=== PATIENT | female | born 1940 | race Caucasian/White ===

== ENCOUNTER 2017-06-21 12:07 | Emergency (ER) | payer MEDICARE, BC ==
[2017-06-21] MEDS ORDERED: Ondansetron 4 MG/2 ML SDV IVPUSH ONE (12:50)
[2017-06-21] MEDS ORDERED: HYDROmorphone 0.5 MG/0.5 ML Syringe IVPUSH ONE ×2 (12:50→14:56)
--- NOTE | 2017-06-21 12:54 | EDM.PDOC ---
ED HPI GENERAL MEDICAL PROBLEM - General Chief Complaint: Abdominal Pain Stated Complaint: NAUSEA/ABD PAIN/TEMP Time Seen by Provider: 06/21/17 12:51 Source of Information: Reports: Patient History Limitations: Reports: No Limitations - History of Present Illness INITIAL COMMENTS - FREE TEXT/NARRATIVE: pt arrived with very severe abdomanal pain. She is vomiting markedly. She started getting sick yesterday. Onset: Other ( started yesterday. ) Duration: Hour(s): Associated Symptoms: Reports: Fever/Chills, Nausea/Vomiting Lower Abdomen Pain Score (Numeric/FACES): 11 - Related Data Allergies Allergy/AdvReac Type Severity Reaction Status Date / Time latex Allergy Hives Verified 06/21/17 12:23 Sulfa (Sulfonamide Allergy Hives Verified 06/21/17 12:22 Antibiotics) Home Meds: Home Meds Aspirin [Halfprin] 81 mg PO Q48H 06/21/17 [History] Diclofenac Sodium 1 dose TOP BID 06/21/17 [History] Esomeprazole Magnesium [Nexium] 20 mg PO DAILY 06/21/17 [History] Past Medical History HEENT History: Reports: Allergic Rhinitis, Impaired Vision Respiratory History: Reports: Asthma 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: , 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 Musculoskeletal History: Reports: Osteoarthritis Oncologic (Cancer) History: Reports: Other (See Below) Other Oncologic History: skin Dermatologic History: Reports: Other (See Below) Other Dermatologic History: rash - Infectious Disease History Infectious Disease History: Reports: Chicken Pox, Measles, Mumps - Past Surgical History HEENT Surgical History: Reports: Tonsillectomy GI Surgical History: Reports: Appendectomy, Colonoscopy, Other (See Below) Other GI Surgeries/Procedures: Known diverticuli Female Surgical History: Reports: Hysterectomy Dermatological Surgical History: Reports: Skin Biopsy, Other (See Below) Social & Family History - Tobacco Use Smoking Status *Q: Former Smoker Used Tobacco, but Quit: Yes Month/Year Tobacco Last Used: 1985 Second Hand Smoke Exposure: No - Caffeine Use Caffeine Use: Reports: Coffee, Soda - Alcohol Use Days Per Week of Alcohol Use: 0 - Recreational Drug Use Recreational Drug Use: No ED ROS GENERAL - Review of Systems Review Of Systems: See Below Constitutional: Reports: No Symptoms HEENT: Reports: No Symptoms Respiratory: Reports: No Symptoms Cardiovascular: Reports: No Symptoms Endocrine: Reports: No Symptoms GI/Abdominal: Reports: Abdominal Pain, Diarrhea, Nausea, Vomiting : Reports: No Symptoms Musculoskeletal: Reports: No Symptoms ED EXAM, GI/ABD - Physical Exam Exam: See Below Text/Narrative:: PT ARRIVED WITH GENERALIZED ABDOMANAL PAIN HOWEVER THE PT THIHNKS IT IS WORSE ON THE LEFT. Exam Limited By: No Limitations General Appearance: Severe Distress, Active Emesis, Other (PT HAS VOMITED ALL DAY. ) Ears: Normal TMs Nose: Normal Inspection Throat/Mouth: Normal Inspection Head: Atraumatic Neck: Normal Inspection Respiratory/Chest: No Respiratory Distress Cardiovascular: Regular Rate, Rhythm, Tachycardia GI/Abdominal Exam: Distended, Guarding, Tender, Other (pT HAS GENERALIZED ABDOMNL TENDERNESS MORE ON THE LEFT THAN THE RT. ) (Female) Exam: Deferred Rectal (Female) Exam: Deferred Back Exam: Normal Inspection Extremities: Normal Inspection Neurological: Alert, Oriented, Normal Cognition Psychiatric: Normal Affect Course - Vital Signs Last Recorded V/S: Last Vital Signs Temp 39.0 C H 06/21/17 14:17 Pulse 93 06/21/17 14:17 Resp 14 06/21/17 14:17 BP 165/69 H 06/21/17 14:17 Pulse Ox 100 06/21/17 14:17 - Orders/Labs/Meds Labs: Laboratory Tests 06/21/17 06/21/17 06/21/17 Range/Units 13:11 13:11 13:11 WBC 6.8 (4.5-11.0) K/uL RBC 4.23 (3.30-5.50) M/uL Hgb 13.1 (12.0-15.0) g/dL Hct 39.8 (36.0-48.0) % MCV 94 (80-98) fL MCH 31 (27-31) pg MCHC 33 (32-36) % Plt Count 268 (150-400) K/uL Neut % (Auto) 85 H (36-66) % Lymph % (Auto) 11 L (24-44) % [place] % (Auto) 5 (2-6) % Eos % (Auto) 0 L (2-4) % Baso % (Auto) 0 (0-1) % Sodium 135 L (140-148) mmol/L Potassium 3.8 (3.6-5.2) mmol/L Chloride 100 (100-108) mmol/L Carbon Dioxide 25 (21-32) mmol/L Anion Gap 13.8 (5.0-14.0) mmol/L BUN 13 (7-18) mg/dL Creatinine 0.6 (0.6-1.0) mg/dL Est Cr Clr Drug Dosing 73.09 mL/min Estimated GFR (MDRD) > 60 (>60) Glucose 139 H (74-106) mg/dL Calcium 9.1 (8.5-10.1) mg/dL Total Bilirubin 1.1 H (0.2-1.0) mg/dL AST 31 (15-37) U/L ALT 45 (12-78) U/L Alkaline Phosphatase 92 (46-116) U/L C-Reactive Protein 15.07 H (0.0-0.3) mg/dL Total Protein 7.8 (6.4-8.2) g/dL Albumin 3.6 (3.4-5.0) g/dL Globulin 4.2 H (2.3-3.5) g/dL Albumin/Globulin Ratio 0.9 L (1.2-2.2) Meds: Medications Discontinued Medications Generic Name Dose Route Start Last Admin Trade Name Freq PRN Reason Stop Dose Admin Acetaminophen 650 mg 06/21/17 15:38 06/21/17 16:05 Tylenol RECTAL 06/21/17 15:39 650 mg NOW ONE Administration Hydromorphone HCl 0.5 mg 06/21/17 12:50 06/21/17 13:05 Dilaudid IVPUSH 06/21/17 12:51 0.5 mg ONETIME ONE Administration Hydromorphone HCl 0.5 mg 06/21/17 14:56 06/21/17 15:03 Dilaudid IVPUSH 06/21/17 14:57 0.5 mg ONETIME ONE Administration Sodium Chloride 1,000 mls @ 999 mls/hr 06/21/17 13:00 06/21/17 13:04 Normal Saline IV 999 mls/hr ASDIRECTED KIN Administration Sodium Chloride 100 mls @ 3 mls/sec 06/21/17 13:45 06/21/17 13:55 Normal Saline IV 3 mls/sec ASDIRECTED KIN Administration Sodium Chloride 1,000 mls @ 999 mls/hr 06/21/17 13:45 06/21/17 15:05 Normal Saline IV 999 mls/hr ASDIRECTED KIN Administration Ceftriaxone Sodium 1 gm/ 50 mls @ 100 mls/hr 06/21/17 15:06 06/21/17 16:10 Sodium Chloride IV 06/21/17 15:35 100 mls/hr ONETIME ONE Administration Metronidazole 500 mg/ Premix 100 mls @ 100 mls/hr 06/21/17 15:07 06/21/17 16: 20 IV 06/21/17 16:06 100 mls/hr ONETIME ONE Administration Iopamidol 100 ml 06/21/17 13:45 06/21/17 13:55 Isovue-300 (61%) IV 88 ml . DIRECTED KIN Administration Ondansetron HCl 4 mg 06/21/17 12:50 06/21/17 13:03 Zofran IVPUSH 06/21/17 12:51 4 mg ONETIME ONE Administration - Re-Assessments/Exams Free Text/Narrative Re-Assessment/Exam: 06/21/17 15:02 PT HAD A NORMAL WBC, CRP WAS GREATER THAN 15. 06/21/17 15:08 CAT SCAN SHOWS A PNEUMoPERTIUM WITH DIVERTICULITIS, pT HAS CHOSEN TO TRANSFER TO [facility]. 06/25/17 07:46 Departure - Departure Time of Disposition: 15:09 Disposition: DC/Tfer to Acute Hospital 02 Condition: Fair Clinical Impression: Diverticulitis, Free intraperitoneal air, Dehydration - Discharge Information Referrals: Fred Serrano MD [Primary Care Provider] - Forms: ED Department Discharge Care Plan Goals: TRANSFER TO [facility]
[2017-06-21] MEDS ORDERED: Sodium Chloride 0.9% 1,000 ML IV SCH ×2 (13:00→13:45)
[2017-06-21] MEDS ORDERED: Sodium Chloride 0.9% 100 ML IV SCH (13:45)
[2017-06-21] MEDS ORDERED: Iopamidol 612 MG/ML 100 ML Bottle IV SCH (13:45)
[2017-06-21] MEDS ORDERED: cefTRIAXone 1 GM in Sodium Chloride 0.9% 50 ML IV ONE (15:06)
[2017-06-21] MEDS ORDERED: metroNIDAZOLE/Normal Saline 500 MG in Premix Bag 1 BAG IV ONE (15:07)
[2017-06-21] MEDS ORDERED: Acetaminophen 650 MG Supp RECTAL ONE (15:38)
== END 2017-06-21 16:41 ==
LOC: JP.ED 12:07
DX: K57.92 Diverticulitis of intestine, part unspecified, without perforation or abscess without bleeding (principal); E86.0 Dehydration; K66.8 Other specified disorders of peritoneum; Z79.899 Other long term (current) drug therapy; Z87.891 Personal history of nicotine dependence
CPT/HCPCS: 36415; 74177; 80053; 85025; 86140; 96374; 99285; A9270; J0696; J1170; J2405; J7030; J7040; J7050; Q9967

== ENCOUNTER 2019-07-05 10:01 | Emergency (ER) | payer MEDICARE, BC ==
--- NOTE | 2019-07-05 10:36 | EDM.PDOC ---
ED HPI GENERAL MEDICAL PROBLEM - General Chief Complaint: Chest Pain Stated Complaint: CHEST PRESSURE Time Seen by Provider: 07/05/19 10:05 Source of Information: Reports: Patient History Limitations: Reports: No Limitations - History of Present Illness INITIAL COMMENTS - FREE TEXT/NARRATIVE: 78-year-old female with no significant coronary artery disease history developed substernal chest pain radiating into the neck and left arm fairly suddenly 45 minutes before coming into the emergency room. She also became lightheaded, mildly short of breath and diaphoretic. She is usually very active , exercises regularly and has no problems with chest pain. No recent illness. A recent thorough yearly evaluation at [facility] was negative, a provider heard a "murmur" on exam so it was followed with an echocardiogram which was normal. She has normal cholesterol levels, is not a smoker and is nondiabetic. She does have a fairly strong family history of coronary artery disease. When she had the pain it felt like she could only take shallow breaths, a deeper breath caused more discomfort. It is now literally gone. Onset: Sudden Duration: Minutes: (45 minutes ago) Location: Reports: Neck, Chest, Upper Extremity, Left Associated Symptoms: Reports: Chest Pain, Diaphoresis, Shortness of Breath, Weakness. Denies: Cough, Nausea/Vomiting Chest Pain Score (Numeric/FACES): 3 - Related Data Allergies Allergy/AdvReac Type Severity Reaction Status Date / Time latex Allergy Hives Verified 07/05/19 10:17 Sulfa (Sulfonamide Allergy Hives Verified 07/05/19 10:17 Antibiotics) Home Meds: Home Meds Esomeprazole Magnesium [Nexium] 20 mg PO DAILY 06/21/17 [History] Ascorbate Calcium [Vitamin C] 500 mg PO DAILY 07/05/19 [History] Estradiol [Vagifem] 1 tab PO DAILY 07/05/19 [History] Glucosamine/D3/Boswellia Jessica [Osteo Bi-Flex Caplet] 1 tab PO DAILY 07/05/19 [ History] L.acidoph,Paracasei, B.lactis [Probiotic] 1 tab PO DAILY 07/05/19 [History] Multivitamin [Multivitamins] 1 tab PO DAILY 07/05/19 [History] Past Medical History HEENT History: Reports: Allergic Rhinitis, Impaired Vision 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 History: Reports: 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 also had an ostomy with a reversal. Female Surgical History: Reports: Hysterectomy Dermatological Surgical History: Reports: Skin Biopsy Social & Family History - Tobacco Use Smoking Status *Q: Never Smoker - Caffeine Use Caffeine Use: Reports: Coffee Other Caffeine Use: 3-4 per day - Recreational Drug Use Recreational Drug Use: No ED ROS GENERAL - Review of Systems Review Of Systems: See Below Constitutional: Denies: Fever, Chills HEENT: Reports: No Symptoms Respiratory: Reports: Shortness of Breath. Denies: Wheezing, Cough Cardiovascular: Reports: Chest Pain. Denies: Palpitations GI/Abdominal: Reports: No Symptoms. Denies: Abdominal Pain, Nausea, Vomiting : Reports: No Symptoms Skin: Reports: Pallor, Diaphoresis (Experienced pallor and diaphoresis before coming in but that is improved) Neurological: Reports: No Symptoms Psychiatric: Reports: No Symptoms ED EXAM, GENERAL - Physical Exam Exam: See Below Exam Limited By: No Limitations General Appearance: Alert, No Apparent Distress, Anxious Head: Atraumatic Respiratory/Chest: No Respiratory Distress, Lungs Clear Cardiovascular: Regular Rate, Rhythm, No Murmur. No: Extra Beats GI/Abdominal: Soft, Non-Tender Extremities: Normal Inspection. No: Pedal Edema Neurological: Alert, Oriented Psychiatric: Normal Affect, Normal Mood Skin Exam: Warm, Dry EKG INTERPRETATION Rhythm: NSR EKG Interpretation Comments: No previous EKGs available for comparison, mild left ventricular hypertrophy but no ST elevation or depression. Course - Vital Signs Last Recorded V/S: Last Vital Signs Temp 94.1 F L 07/05/19 10:15 Pulse 70 07/05/19 11:07 Resp 12 07/05/19 11:07 BP 198/69 H 07/05/19 11:07 Pulse Ox 99 07/05/19 11:07 - Orders/Labs/Meds Orders: Active Orders 24 hr Category Date Time Status EKG Documentation Completion [RC] ASDIRECTED Care 07/05/19 10:29 Active EKG 12 Lead [EK] Routine Ther 07/05/19 10:29 Ordered Labs: Laboratory Tests 07/05/19 07/05/19 07/05/19 Range/Units 10:43 10:43 14:49 WBC 6.4 (4.5-11.0) K/uL RBC 3.93 (3.30-5.50) M/uL Hgb 11.8 L (12.0-15.0) g/dL Hct 37.0 (36.0-48.0) % MCV 94 (80-98) fL MCH 30 (27-31) pg MCHC 32 (32-36) % Plt Count 264 (150-400) K/uL Neut % (Auto) 62 (36-66) % Lymph % (Auto) 30 (24-44) % [place] % (Auto) 7 H (2-6) % Eos % (Auto) 1 L (2-4) % Baso % (Auto) 0 (0-1) % Sodium 137 L (140-148) mmol/L Potassium 3.9 (3.6-5.2) mmol/L Chloride 102 (100-108) mmol/L Carbon Dioxide 25 (21-32) mmol/L Anion Gap 13.9 (5.0-14.0) mmol/L BUN 19 H (7-18) mg/dL Creatinine 0.8 (0.6-1.0) mg/dL Est Cr Clr Drug Dosing 54.30 mL/min Estimated GFR (MDRD) > 60 (>60) Glucose 102 (74-106) mg/dL Calcium 8.9 (8.5-10.1) mg/dL Troponin I < 0.017 < 0.017 (0.000-0.056) ng/mL - Re-Assessments/Exams Free Text/Narrative Re-Assessment/Exam: 07/05/19 11:10 The patient's labs were all normal, troponin was 0. 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 I did agree to allow her to come back after the showing, which will be in about 4 hours and a repeat troponin can be drawn as an outpatient. If that is negative which I expect it will be, we will discuss an outpatient Cardiolite stress test. If the test is positive she will be registered and transfer to cardiology will be arranged. 07/05/19 16:27 Patient return for a 4-hour troponin, was feeling okay and the troponin was negative. Still 0. We discussed setting up a Cardiolite stress test but she deferred and would rather wait until the pandemic is over unless she starts getting more symptoms. In that case she will return. Departure - Departure Time of Disposition: 11:23 Disposition: Home, Self-Care 01 Clinical Impression: Atypical chest pain Instructions: Nonspecific Chest Pain, Adult, [id number] Referrals: PCP,None [Primary Care Provider] - Forms: ED Department Discharge Care Plan Goals: Return at roughly 2 PM for repeat blood test as discussed. Return sooner if worsening or concerns. Sepsis Event Note - Evaluation Sepsis Screening Result: No Definite Risk - Focused Exam Vital Signs: Vital Signs Temp Pulse Resp BP Pulse Ox 07/05/19 11:07 70 12 198/69 H 99 07/05/19 10:15 94.1 F L 78 17 177/70 H 100 Date Exam was Performed: 07/05/19 Time Exam was Performed: 16:27 - My Orders Last 24 Hours: My Active Orders 07/05/19 10:29 EKG Documentation Completion [RC] ASDIRECTED EKG 12 Lead [EK] Routine - Assessment/Plan Last 24 Hours: My Active Orders 07/05/19 10:29 EKG Documentation Completion [RC] ASDIRECTED EKG 12 Lead [EK] Routine
== END 2019-07-05 11:23 | disposition home or self-care (01) ==
LOC: JP.ED 10:01
DX: R07.89 Other chest pain (principal); J45.909 Unspecified asthma, uncomplicated; Z91.040 Latex allergy status; Z88.2 Allergy status to sulfonamides
CPT/HCPCS: 36415; 80048; 84484; 85025; 93005; 93010; 99283; 99285-25

== ENCOUNTER 2022-03-02 06:21 | Emergency (ER) | payer MEDICARE, BC ==
[~2022-03-02 06:21] MED LIST: Sodium Chloride 0.9% 10 ML Syringe FLUSH PRN
[2022-03-02] MEDS ORDERED: Labetalol 20 MG/4 ML Syringe IVPUSH ONE ×2 (06:24→06:49)
[2022-03-02] MEDS ORDERED: Ondansetron 4 MG/2 ML SDV IVPUSH ONE (06:38)
[2022-03-02] MEDS ORDERED: hydrALAZINE 20 MG/ML SDV IVPUSH PRN (06:59)
[2022-03-02 07:04] LABS: ESTIMATED GFR 86 mL/min (>60); TROPONIN I HIGH SENSITIVITY 12.1 pg/mL (<=60.3)
[2022-03-02 07:06] LABS: CORONAVIRUS COVID-19 NAA NEGATIVE (NEGATIVE)
== END 2022-03-02 10:18 | disposition home or self-care (01) ==
LOC: JP.ED 06:21
DX: R55 Syncope and collapse (principal); I16.1 Hypertensive emergency; Z91.040 Latex allergy status; Z88.2 Allergy status to sulfonamides; Z79.899 Other long term (current) drug therapy; Z90.49 Acquired absence of other specified parts of digestive tract; Z90.710 Acquired absence of both cervix and uterus; Z20.822 Contact with and (suspected) exposure to COVID-19
CPT/HCPCS: 0241U; 36415; 70450; 71046; 80053; 81001; 83605; 84443; 84484; 85025; 85379; 85610; 85730; 93005; 96374; 96375; 99285; J2405; J3490

== ENCOUNTER 2022-03-03 17:11 | Inpatient (IN) | payer MEDICARE, BC ==
[2022-03-03] MEDS ORDERED: LORazepam 2 MG/ML SDV IVPUSH ONE (17:35)
[2022-03-03] MEDS ORDERED: Iopamidol 755 Mg/ML 100 ML Bottle IV SCH ×2 (18:15→22:00)
[2022-03-03] MEDS ORDERED: Sodium Chloride 0.9% 75 ML IV SCH ×2 (18:15→22:00)
[2022-03-03] MEDS: hydrALAZINE 20 MG/ML SDV IVPUSH PRN ×2 (18:24→19:25)
[2022-03-03] MEDS ORDERED: Sodium Chloride 0.9% 1,000 ML IV SCH (20:15)
[2022-03-03] MEDS ORDERED: Ondansetron 4 MG/2 ML SDV IVPUSH ONE ×2 (20:16→20:37)
[2022-03-03] MEDS ORDERED: Ondansetron 4 MG/2 ML SDV ONE (20:18)
[2022-03-03] MEDS ORDERED: Meclizine 25 MG Tab PO PRN (22:16)
[2022-03-03] MEDS ORDERED: Ibuprofen 600 MG Tab PO PRN (22:19)
[2022-03-03] MEDS ORDERED: Albuterol/Ipratropium 3.0-0.5 MG/3 ML Neb Soln NEB PRN (22:19)
[2022-03-03] MEDS ORDERED: LORazepam 2 MG/ML SDV IVPUSH PRN (22:19)
[2022-03-03] MEDS ORDERED: Magnesium Hydroxide 400 MG/5 ML Susp 30 ML Cup PO PRN (22:19)
[2022-03-03] MEDS ORDERED: hydrALAZINE 20 MG/ML SDV IVPUSH PRN ×2 (22:23→22:57)
[2022-03-03] MEDS: Acetaminophen 325 MG Tab PO PRN (23:44)
[2022-03-04 06:31] LABS: ESTIMATED GFR 86 mL/min (>60)
[2022-03-04] MEDS: Ondansetron 4 MG/2 ML SDV IV PRN ×4 (07:55→23:45)
[2022-03-04] MEDS: Pantoprazole 40 MG Tab.CR PO SCH (08:42)
[2022-03-04] MEDS: Lactobacillus Rhamnosus GG (Probiotic) Cap PO SCH (08:43)
[2022-03-04] MEDS: Multivitamins with Iron/Calcium/Folic Acid/Minerals Tab PO SCH (08:43)
[2022-03-04] MEDS: Ascorbic Acid 500 MG Tab PO SCH (08:44)
[2022-03-04] MEDS: Acetaminophen 325 MG Tab PO PRN (08:46)
[2022-03-04] MEDS ORDERED: Non-Formulary Medication 1 Each (Ascorbate Calcium [Vitamin C] 500 MG Tablet) PO SCH (09:00)
[2022-03-04] MEDS ORDERED: Non-Formulary Medication 1 Each (L.Acidoph,Paracasei, B.Lactis [Probiotic] 1 EACH Capsule) PO SCH (09:00)
[2022-03-04] MEDS ORDERED: Non-Formulary Medication 1 Each (Multivitamin [Multivitamins] 1 EACH Capsule) PO SCH (09:00)
[2022-03-04] MEDS ORDERED: Potassium Chloride 20 MEQ Tab.ER PO ONE (10:30)
[2022-03-04] MEDS ORDERED: hydrALAZINE 20 MG/ML SDV IVPUSH PRN (10:30)
[2022-03-04] MEDS: Prochlorperazine 10 MG Tab PO PRN (10:34)
[2022-03-04] MEDS: Lisinopril 20 MG Tab PO SCH (10:34)
[2022-03-04] MEDS: LORazepam 0.5 MG Tab PO PRN ×2 (16:13→20:03)
[2022-03-05] MEDS: Meclizine 25 MG Tab PO PRN (00:17)
[2022-03-05] MEDS: LORazepam 0.5 MG Tab PO PRN ×2 (00:18→11:51)
[2022-03-05] MEDS ORDERED: LORazepam 2 MG/ML SDV IVPUSH ONE (07:24)
[2022-03-05] MEDS ORDERED: Sodium Chloride 0.9% 1,000 ML IV SCH (07:30)
[2022-03-05] MEDS ORDERED: Sodium Chloride 0.9% 500 ML IV ONE (07:30)
[2022-03-05] MEDS ORDERED: Sodium Chloride 0.9% 10 ML SDV IV SCH (07:30)
[2022-03-05] MEDS: Lisinopril 20 MG Tab PO SCH (08:03)
[2022-03-05] MEDS: Pantoprazole 40 MG Tab.CR PO SCH ×2 (08:04→16:25)
[2022-03-05] MEDS: Ascorbic Acid 500 MG Tab PO SCH (08:42)
[2022-03-05] MEDS: Lactobacillus Rhamnosus GG (Probiotic) Cap PO SCH (08:42)
[2022-03-05] MEDS: Multivitamins with Iron/Calcium/Folic Acid/Minerals Tab PO SCH (08:42)
[2022-03-05 10:41] LABS: TROPONIN I HIGH SENSITIVITY 17.8 pg/mL (<=60.3)
[2022-03-05] MEDS ORDERED: Iopamidol 612 MG/ML 100 ML Bottle IV PRN (10:50)
[2022-03-05] MEDS ORDERED: Sodium Chloride 0.9% 10 ML Syringe FLUSH PRN (10:50)
[2022-03-05] MEDS ORDERED: Sodium Chloride 0.9% 75 ML IV SCH (11:00)
[2022-03-05] MEDS ORDERED: LORazepam 2 MG/ML SDV IVPUSH PRN (11:59)
[2022-03-06] MEDS: Pantoprazole 40 MG Tab.CR PO SCH ×2 (07:17→17:03)
[2022-03-06] MEDS: Meclizine 25 MG Tab PO PRN (07:52)
[2022-03-06] MEDS: Acetaminophen 325 MG Tab PO PRN ×3 (07:52→20:08)
[2022-03-06] MEDS: Lactobacillus Rhamnosus GG (Probiotic) Cap PO SCH (10:06)
[2022-03-06] MEDS: Multivitamins with Iron/Calcium/Folic Acid/Minerals Tab PO SCH (10:07)
[2022-03-06] MEDS: Hydrochlorothiazide 25 MG Tab PO SCH (10:07)
[2022-03-06] MEDS: Ascorbic Acid 500 MG Tab PO SCH (10:07)
[2022-03-06] MEDS: Lisinopril 20 MG Tab PO SCH (10:08)
[2022-03-06] MEDS: hydrALAZINE 10 MG Tab PO SCH ×2 (17:03→20:02)
[2022-03-06] MEDS: atorvaSTATin 20 MG Tab PO SCH (20:09)
[2022-03-07] MEDS: Ondansetron 4 MG/2 ML SDV IV PRN (01:30)
[2022-03-07] MEDS: LORazepam 0.5 MG Tab PO PRN (04:32)
[2022-03-07] MEDS: Prochlorperazine 10 MG Tab PO PRN (05:47)
[2022-03-07] MEDS: Pantoprazole 40 MG Tab.CR PO SCH ×2 (07:27→16:00)
[2022-03-07] MEDS: Ascorbic Acid 500 MG Tab PO SCH (08:48)
[2022-03-07] MEDS: hydrALAZINE 10 MG Tab PO SCH ×3 (08:48→20:17)
[2022-03-07] MEDS: Lactobacillus Rhamnosus GG (Probiotic) Cap PO SCH (08:48)
[2022-03-07] MEDS: Multivitamins with Iron/Calcium/Folic Acid/Minerals Tab PO SCH (08:48)
[2022-03-07] MEDS: Hydrochlorothiazide 25 MG Tab PO SCH (08:48)
[2022-03-07] MEDS: Lisinopril 20 MG Tab PO SCH (08:48)
[2022-03-07] MEDS: Acetaminophen 325 MG Tab PO PRN ×2 (08:54→20:25)
[2022-03-07] MEDS: Aspirin 81 MG Tab.Chew PO SCH (09:05)
[2022-03-07] MEDS: Ondansetron 4 MG Tab.DIS PO PRN (13:02)
[2022-03-07] MEDS: atorvaSTATin 20 MG Tab PO SCH (20:17)
[2022-03-07] MEDS: Meclizine 25 MG Tab PO PRN (20:25)
[2022-03-08] MEDS: Pantoprazole 40 MG Tab.CR PO SCH (07:22)
[2022-03-08] MEDS: Aspirin 81 MG Tab.Chew PO SCH (08:31)
[2022-03-08] MEDS: Lactobacillus Rhamnosus GG (Probiotic) Cap PO SCH (08:31)
[2022-03-08] MEDS: Lisinopril 20 MG Tab PO SCH (08:31)
[2022-03-08] MEDS: Hydrochlorothiazide 25 MG Tab PO SCH (08:31)
[2022-03-08] MEDS: hydrALAZINE 10 MG Tab PO SCH ×2 (08:31→13:09)
[2022-03-08] MEDS: Ascorbic Acid 500 MG Tab PO SCH (08:32)
[2022-03-08] MEDS: Multivitamins with Iron/Calcium/Folic Acid/Minerals Tab PO SCH (08:32)
[2022-03-08] MEDS: Ondansetron 4 MG Tab.DIS PO PRN (10:07)
[2022-03-08] MEDS: Meclizine 25 MG Tab PO PRN (10:53)
[2022-03-11 23:09] LABS: METANEPHRINE, UR 164 ug/L (Undefined); NORMETANEPHRINE, UR 442 ug/L (Undefined)
== END 2022-03-08 13:20 | disposition home or self-care (01) | DRG 65 ==
LOC: JP.ED 17:11 → JP.ICU 22:19
PROVIDERS: ADMIT Hospitalist; ATTEND Internal Medicine
DX: I16.9 Hypertensive crisis, unspecified (principal); I63.9 Cerebral infarction, unspecified; I16.1 Hypertensive emergency; E87.6 Hypokalemia; I10 Essential (primary) hypertension; I70.1 Atherosclerosis of renal artery; H54.7 Unspecified visual loss; K21.9 Gastro-esophageal reflux disease without esophagitis; J43.9 Emphysema, unspecified; J30.9 Allergic rhinitis, unspecified; M19.90 Unspecified osteoarthritis, unspecified site; Z85.828 Personal history of other malignant neoplasm of skin; Z86.19 Personal history of other infectious and parasitic diseases; Z79.82 Long term (current) use of aspirin; Z79.899 Other long term (current) drug therapy; Z91.040 Latex allergy status; Z88.2 Allergy status to sulfonamides; Z90.89 Acquired absence of other organs; Z90.49 Acquired absence of other specified parts of digestive tract; Z90.710 Acquired absence of both cervix and uterus; Z87.891 Personal history of nicotine dependence
CPT/HCPCS: 36415; 71275; 74174; 80048; 84484; 85025; 93005; 96374; 96375; 99285; J0360 ×2; J2060; J2405; J3490 ×2; J7030; Q9967 ×2; 70551; 70551-26; 80053; 81001; 82384; 83735; 83835; 85027; 86140; 97110-GP; 97162-GP; 97165-GO; 97530-GP; A9270-GY; C8929; J7040; Q0162; Q0164

== ENCOUNTER 2022-11-05 08:58 | Emergency (ER) | payer MEDICARE, BC ==
[2022-11-05 09:46] LABS: BASOPHILS PERCENT AUTO 0.5 % (0.1-1.3); EOSINOPHILS PERCENT AUTO 5.2 % (0.0-5.4); HEMATOCRIT 25.9 % (34.3-46.0); LYMPHOCYTES ABSOLUTE AUTO 1.45 K/uL (0.8-3.3); MEAN CORPUSCULAR HEMOGLOBIN 24.5 pg (31.6-35.5); MEAN CORPUSCULAR HGB CONC 30.9 g/dL (31.6-35.5); MEAN CORPUSCULAR VOLUME 79.2 fL (81.4-99.0); MONOCYTES ABSOLUTE AUTO 0.45 K/uL (0.20-0.90); MONOCYTES PERCENT AUTO 11.8 % (3.3-12.6); NEUTROPHILS PERCENT AUTO 44.5 % (40.0-78.1); PLATELET COUNT,PLT 306 K/uL (130-375); RED BLOOD CELL COUNT 3.27 M/uL (3.77-5.24); WHITE BLOOD CELL COUNT,WBC 3.8 K/uL (3.2-11.0)
[2022-11-05 10:09] LABS: ANION GAP 14.5 mmol/L (5.0-14.0); CALCIUM 8.7 mg/dL (8.5-10.1); CREATININE 0.8 mg/dL (0.6-1.0); EST CRCL DRUG DOSING (CG) 52.41 mL/min; POTASSIUM,K 3.5 mmol/L (3.6-5.2); TROPONIN I HIGH SENSITIVITY 7.7 pg/mL (<=60.3)
[2022-11-05 10:10] LABS: BASOPHILS ABSOLUTE AUTO 0.02 K/uL (0.00-0.10)
== END 2022-11-05 11:30 | disposition home or self-care (01) ==
LOC: JP.ED 08:58
DX: R10.13 Epigastric pain (principal); I10 Essential (primary) hypertension; J45.909 Unspecified asthma, uncomplicated; Z79.899 Other long term (current) drug therapy; Z88.1 Allergy status to other antibiotic agents; Z79.82 Long term (current) use of aspirin
CPT/HCPCS: 36415; 80048; 84484; 85025; 93005; 93010; 99284; 99285

== ENCOUNTER 2022-11-19 07:33 | Day surgery (SDC) | payer MEDICARE, BC ==
[~2022-11-19 07:33] MED LIST changes: +Propofol 200 MG/20 ML SDV ONE; -Sodium Chloride 0.9% 10 ML Syringe FLUSH PRN
[2022-11-19] MEDS ORDERED: fentaNYL 50 MCG/ML SDV ONE (07:44)
[2022-11-19] MEDS ORDERED: Dextrose 5%-Lactated Ringers 1,000 ML IV SCH (07:45)
[2022-11-19] MEDS ORDERED: Ondansetron 4 MG/2 ML SDV ONE (09:20)
== END 2022-11-19 10:40 | disposition home or self-care (01) ==
LOC: JP.SDS 07:33
PROVIDERS: ATTEND Surgery
DX: D64.9 Anemia, unspecified (principal); K44.9 Diaphragmatic hernia without obstruction or gangrene; K29.70 Gastritis, unspecified, without bleeding; K29.80 Duodenitis without bleeding; K21.9 Gastro-esophageal reflux disease without esophagitis; I10 Essential (primary) hypertension; J45.909 Unspecified asthma, uncomplicated; Z86.69 Personal history of other diseases of the nervous system and sense organs; Z88.5 Allergy status to narcotic agent; Z88.1 Allergy status to other antibiotic agents; Z88.8 Allergy status to other drugs, medicaments and biological substances; Z91.040 Latex allergy status; Z88.2 Allergy status to sulfonamides
CPT/HCPCS: 43239; 87081; J2405; J2704; J3010; J7121

== ENCOUNTER 2023-01-06 06:30 | Day surgery (SDC) | payer MEDICARE, BC ==
[2023-01-06] MEDS: Dextrose 5%-Lactated Ringers 1,000 ML IV SCH (06:47)
[2023-01-06] MEDS ORDERED: Ondansetron 4 MG/2 ML SDV ONE (07:06)
[2023-01-06] MEDS ORDERED: Propofol 200 MG/20 ML SDV ONE (07:06)
[2023-01-06] MEDS ORDERED: fentaNYL 50 MCG/ML SDV ONE (07:06)
== END 2023-01-06 09:05 | disposition home or self-care (01) ==
LOC: JP.SDS 06:30
PROVIDERS: ATTEND Surgery
DX: D50.9 Iron deficiency anemia, unspecified (principal); K57.30 Diverticulosis of large intestine without perforation or abscess without bleeding; K64.9 Unspecified hemorrhoids; I10 Essential (primary) hypertension; K21.9 Gastro-esophageal reflux disease without esophagitis; Z90.49 Acquired absence of other specified parts of digestive tract; Z87.19 Personal history of other diseases of the digestive system; Z86.73 Personal history of transient ischemic attack (TIA), and cerebral infarction without residual deficits
CPT/HCPCS: J2405; J2704; J3010; J7121

== ENCOUNTER 2023-02-01 12:32 | Emergency (ER) | payer MEDICARE, BC ==
[2023-02-01 13:48] LABS: BASOPHILS PERCENT AUTO 0.5 % (0.1-1.3); EOSINOPHILS ABSOLUTE AUTO 0.11 K/uL (0.00-0.40); EOSINOPHILS PERCENT AUTO 2.8 % (0.0-5.4); HEMATOCRIT 30.6 % (34.3-46.0); HEMOGLOBIN 9.7 g/dL (11.2-15.5); IMMATURE GRAN PERCENT AUTO 0.3 % (0.0-0.7); LYMPHOCYTES ABSOLUTE AUTO 1.79 K/uL (0.8-3.3); LYMPHOCYTES PERCENT AUTO 45.8 % (11.4-47.7); MEAN CORPUSCULAR HEMOGLOBIN 26.2 pg (31.6-35.5); MEAN CORPUSCULAR HGB CONC 31.7 g/dL (31.6-35.5); MEAN CORPUSCULAR VOLUME 82.7 fL (81.4-99.0); MONOCYTES PERCENT AUTO 10.2 % (3.3-12.6); NEUTROPHILS ABSOLUTE AUTO 1.58 K/uL (1.0-7.6); NEUTROPHILS PERCENT AUTO 40.4 % (40.0-78.1); PLATELET COUNT,PLT 271 K/uL (130-375); WHITE BLOOD CELL COUNT,WBC 3.9 K/uL (3.2-11.0)
[2023-02-01 13:49] LABS: BASOPHILS ABSOLUTE AUTO 0.02 K/uL (0.00-0.10); IMMATURE GRAN ABSOLUTE AUTO 0.01 K/uL (0.00-0.23)
[2023-02-01 13:53] LABS: APPEARANCE,URINE CLEAR (CLEAR); BILIRUBIN,URINE NEGATIVE (NEGATIVE); COLOR,URINE YELLOW (YELLOW); GLUCOSE,URINE NEGATIVE (NEGATIVE); KETONES,URINE NEGATIVE (NEGATIVE); LEUKOCYTE ESTERASE,URINE NEGATIVE (NEGATIVE); NITRITE,URINE NEGATIVE (NEGATIVE); OCCULT BLOOD,URINE NEGATIVE (NEGATIVE); PROTEIN,URINE NEGATIVE (NEGATIVE); UROBILINOGEN,URINE 0.2 EU/dL (0.2-1.0)
[2023-02-01 14:00] LABS: RBC,URINE 0-5 (0-5); WBC,URINE 0-5 (0-5)
[2023-02-01 14:01] LABS: AMORPHOUS SEDIMENT,URINE NOT SEEN; BACTERIA,URINE RARE; EPITHELIAL CELLS,URINE RARE; MUCUS,URINE RARE
[2023-02-01 14:03] LABS: CALCIUM 8.3 mg/dL (8.5-10.1); CREATININE 0.8 mg/dL (0.6-1.0); EST CRCL DRUG DOSING (CG) 49.88 mL/min; POTASSIUM,K 3.7 mmol/L (3.6-5.2)
[2023-02-01 14:04] LABS: ANION GAP 13.7 mmol/L (5.0-14.0)
== END 2023-02-01 15:32 | disposition home or self-care (01) ==
LOC: JP.ED 12:32
DX: G45.9 Transient cerebral ischemic attack, unspecified (principal); I10 Essential (primary) hypertension; E78.00 Pure hypercholesterolemia, unspecified; J45.909 Unspecified asthma, uncomplicated; Z88.1 Allergy status to other antibiotic agents; Z91.040 Latex allergy status; Z88.5 Allergy status to narcotic agent; Z88.4 Allergy status to anesthetic agent; Z88.2 Allergy status to sulfonamides; Z79.899 Other long term (current) drug therapy
CPT/HCPCS: 36415; 70450; 80048; 81001; 82947; 85025; 99284; 99285

== ENCOUNTER 2024-07-01 13:39 | Emergency (ER) | payer MEDICARE, BC ==
[2024-07-01 14:38] LABS: APPEARANCE,URINE CLEAR (CLEAR); BILIRUBIN,URINE NEGATIVE (NEGATIVE); COLOR,URINE YELLOW (YELLOW); GLUCOSE,URINE NEGATIVE (NEGATIVE); KETONES,URINE NEGATIVE (NEGATIVE); LEUKOCYTE ESTERASE,URINE NEGATIVE (NEGATIVE); NITRITE,URINE NEGATIVE (NEGATIVE); OCCULT BLOOD,URINE NEGATIVE (NEGATIVE); PH,URINE 5.5 (5.0-8.0); PROTEIN,URINE NEGATIVE (NEGATIVE); UROBILINOGEN,URINE 0.2 EU/dL (0.2-1.0)
[2024-07-01 14:40] LABS: BASOPHILS ABSOLUTE AUTO 0.03 K/uL (0.00-0.10); BASOPHILS PERCENT AUTO 0.8 % (0.1-1.3); EOSINOPHILS ABSOLUTE AUTO 0.15 K/uL (0.00-0.40); EOSINOPHILS PERCENT AUTO 3.9 % (0.0-5.4); HEMATOCRIT 36.2 % (34.3-46.0); IMMATURE GRAN ABSOLUTE AUTO 0.01 K/uL (0.00-0.23); IMMATURE GRAN PERCENT AUTO 0.3 % (0.0-0.7); LYMPHOCYTES ABSOLUTE AUTO 1.34 K/uL (0.8-3.3); LYMPHOCYTES PERCENT AUTO 34.6 % (11.4-47.7); MEAN CORPUSCULAR HEMOGLOBIN 32.2 pg (31.6-35.5); MEAN CORPUSCULAR HGB CONC 33.1 g/dL (31.6-35.5); MEAN CORPUSCULAR VOLUME 97.1 fL (81.4-99.0); MONOCYTES ABSOLUTE AUTO 0.41 K/uL (0.20-0.90); MONOCYTES PERCENT AUTO 10.6 % (3.3-12.6); NEUTROPHILS ABSOLUTE AUTO 1.93 K/uL (1.0-7.6); NEUTROPHILS PERCENT AUTO 49.8 % (40.0-78.1); PLATELET COUNT,PLT 238 K/uL (130-375); RED BLOOD CELL COUNT 3.73 M/uL (3.77-5.24); WHITE BLOOD CELL COUNT,WBC 3.9 K/uL (3.2-11.0)
[2024-07-01 14:47] LABS: AMORPHOUS SEDIMENT,URINE NOT SEEN; BACTERIA,URINE FEW; EPITHELIAL CELLS,URINE NOT SEEN; MUCUS,URINE NOT SEEN; RBC,URINE 0-5 (0-5); WBC,URINE 0-5 (0-5)
[2024-07-01 15:03] LABS: ALANINE AMINOTRANSFERASE,ALT 27 U/L (12-78); ALBUMIN 3.7 g/dL (3.4-5.0); ALKALINE PHOSPHATASE 82 U/L (46-116); ANION GAP 13.6 mmol/L (5.0-14.0); ASPARTATE AMNIOTRANSFERASE,AST 20 U/L (15-37); BILIRUBIN TOTAL 0.3 mg/dL (0.2-1.0); BLOOD UREA NITROGEN,BUN 18 mg/dL (7-18); CALCIUM 9.2 mg/dL (8.5-10.1); CARBON DIOXIDE,CO2 26 mmol/L (21-32); CHLORIDE,CL 101 mmol/L (100-108); CREATININE 0.7 mg/dL (0.6-1.0); EST CRCL DRUG DOSING (CG) 57.83 mL/min; ESTIMATED GFR 85 mL/min (>60); GLUCOSE RANDOM 79 mg/dL (74-106); POTASSIUM,K 3.6 mmol/L (3.6-5.2); PROTEIN TOTAL,TP 7.5 g/dL (6.4-8.2); SODIUM,NA 137 mmol/L (140-148); TROPONIN I HIGH SENSITIVITY 11.4 pg/mL (<=60.3)
== END 2024-07-01 16:04 | disposition home or self-care (01) ==
LOC: JP.ED 13:39
DX: R55 Syncope and collapse (principal); E78.00 Pure hypercholesterolemia, unspecified; I10 Essential (primary) hypertension; J44.89 Other specified chronic obstructive pulmonary disease; Z88.1 Allergy status to other antibiotic agents; Z91.040 Latex allergy status; Z79.82 Long term (current) use of aspirin; Z79.899 Other long term (current) drug therapy; Z88.2 Allergy status to sulfonamides; Z88.8 Allergy status to other drugs, medicaments and biological substances; Z86.73 Personal history of transient ischemic attack (TIA), and cerebral infarction without residual deficits; Z87.891 Personal history of nicotine dependence
CPT/HCPCS: 36415; 80053; 81001; 84484; 85025; 99283; 99284